=== PATIENT | female | born 1975 | race Caucasian/White ===

== ENCOUNTER 2017-11-10 05:22 | Day surgery (SDC) | payer BC ==
[2017-11-07 17:29] VITALS: BMI 57.9
--- NOTE | 2017-11-10 10:40 | HP ---
Past Medical History - Primary Care Physician PCP:: Ry Boland - Admission Chief Complaint: 42yo female with morbid obesity, menometrorrhagia, and simple endometrial hyperplasia, admitted for hysteroscopy and D&C. History of Present Illness: Pt with vaginal bleeding x 1 mo that is heavy at times. 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: Alzheimer's, CVA, Dementia, Migraine, Multiple Sclerosis, Peripheral Neuropathy, Parkinson's, Seizure, Syncope, TIA, Vertigo, Other Cardiovascular: No: AFIB, Aneurysm, Aortic Insufficiency, Aortic Stenosis, CAD, CHF, Deep Vein Thrombosis, HTN, Hyperlipdemia, TN, Mitral Insufficiency, Mitral Stenosis, Murmur, Pulmonary Hypertension, Other Pulmonary: No: Asthma, Bronchitis, Cancer, COPD, O2 Dependent, Pneumonia, Previously Intubated, Pulmonary Embolus, Pulmonary Fibrosis, Sleep Apnea, Other Gastrointestinal: No: Ascites, Cancer, Constipation, Crohn's Disease, Diverticulitis, Diverticulosis, Esophageal Varices, Gastritis, GERD, GI Bleed, Hemorrhoids, Hiatal Hernia, Inflamatory Bowel Disease, Irritable Bowel Disease, Pancreatitis, Peptic Ulcer Disease, Ulcerative Colitis, Other Hepatobiliary: No: Cirrhosis, Cholelithiasis, Cholecystitis, Choledocholithiasis , Hepatitis A, Hepatitis B, Hepatitis C, Other Renal/: No: Renal Failure, Renal Inusuff, BPH, Cancer, Hematuria, Hemodialysis , Neurogenic Bladder, Renal Calculi, UTI, Other Reproductive: No: Ectopic , Endometriosis, Fibroids, PID, Polycystic Ovary Syndrome, Postmenopausal, Other ...Para: 1 Heme/Onc: Yes: Anemia Infectious Disease: No: AIDS, C-Diff, Herpes Zoster, HIV, MRSA, STD's, Tuberculosis, VREF, Other Psych: No: Addictions, Anxiety, Bipolar, Depression, Panic, Psychosis, Schizophrenia, Other Musculoskeletal: Yes: Osteoarthritis Rheumatology: No: Fibromyalgia, Gout, Lupus, Rheumatoid Arthritis, Sarcoidosis, Vasculitis, Other ENT: No: Allergic Rhinitis, Sinusitis, Other Endocrine: No: Baxter's Disease, Noble's Disease, Diabetes Insipidus, Diabetes Mellitus, Hyperparathyroidism, Hyperthyroidism, Hypothyroidism, Osteopenia, SIADH, Other Dermatology: No: Basal Cell, Cellulitis, Eczema, Melanoma, Psoriasis, Squamous Cell, Other Additional Medical History: Morbid obesity - Past Surgical History Past Surgical History: Yes: Hx Myomectomy: Yes (Hysteroscopic) Hx Transabdominal Cerclage: No Additional Surgical History: Hysteroscopy, D&C - Smoking History Smoking history: Former smoker Have you smoked in the past 12 months: Yes Aproximately how many cigarettes per day: 6 If you are a former smoker, when did you quit?: OCTOBER 2017 - Alcohol/Substance Use Hx Alcohol Use: Yes (SELDOM) History of Substance Use: reports: None - Social History ADL: Independent History of Recent Travel: No Home Medications - Allergies Allergies/Adverse Reactions: Allergies Allergy/AdvReac Type Severity Reaction Status Date / Time No Known Drug Allergies Allergy Verified 11/07/17 17:07 - Home Medications Home Medications: Ambulatory Orders Bismuth Citrate 300 gm MC QID 11/07/17 Metronidazole 375 mg PO QID 11/07/17 Tricycline 375 mg PO QID 11/07/17 Family Disease History - Family Disease History Family History: Denies Review of Systems Findings/Remarks: Well appearing - Review of Systems Constitutional: reports: No Symptoms Eyes: reports: No Symptoms HENT: reports: No Symptoms Neck: reports: No Symptoms Cardiovascular: reports: No Symptoms Respiratory: reports: No Symptoms Gastrointestinal: reports: No Symptoms Genitourinary: reports: Vaginal Bleeding Breasts: reports: No Symptoms Reported Musculoskeletal: reports: No Symptoms Integumentary: reports: No Symptoms Neurological: reports: No Symptoms Endocrine: reports: No Symptoms Hematology/Lymphatic: reports: No Symptoms Psychiatric: reports: No Symptoms Pain Intensity: 0 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: Vital Signs Temperature 98.2 F 11/10/17 09:41 Pulse Rate 91 H 11/10/17 09:41 Respiratory Rate 20 11/10/17 09:41 Blood Pressure 132/79 11/10/17 09:41 O2 Sat by Pulse Oximetry (%) 99 11/10/17 09:41 Constitutional: Yes: No Distress, Calm, Obese Eyes: Yes: WNL, Conjunctiva Clear HENT: Yes: WNL, Atraumatic, Normocephalic Neck: Yes: WNL, Supple, Trachea Midline Cardiovascular: Yes: WNL, Regular Rate and Rhythm Respiratory: Yes: WNL, Regular, CTA Bilaterally Gastrointestinal: Yes: WNL, Normal Bowel Sounds, Soft, Abdomen, Obese ...Rectal Exam: Yes: Deferred Renal/: Yes: WNL Pelvis: Yes: WNL External Genitalia: Yes: Normal Internal Exam Deferred: No Vaginal Exam: Yes: Normal, Bleeding Cervix: Yes: Normal, Bleeding Uterus: Yes: Normal Adnexa: Normal: Right, Left Musculoskeletal: Yes: WNL Extremities: Yes: WNL Edema: No Integumentary: Yes: WNL Neurological: Yes: WNL, Alert, Oriented ...Motor Strength: WNL Psychiatric: Yes: WNL, Alert, Oriented Imaging - Results Ultrasound: Report Reviewed Assessment/Plan 42yo P1 with menometrorrhagia, simple endometrial hyperplasia, morbid obesity admitted for hysteroscopy and D&C. We had discussed the risks, benefits, alternatives of surgery at length including but not limited to infection, bleeding, scarring, perforation, amenorrhea, infertility, hysterectomy, etc. The pt verbalized understanding and requested to proceed with surgery. I emphasized that all surgeries have risks and no guarantees can be provided
[2017-11-10] MEDS ORDERED: MIDAZOLAM HCL 2 MG/2 ML SINGLE DOSE VIAL ONE ×2 (11:12→11:41)
[2017-11-10] MEDS ORDERED: PROPOFOL 20 ML ONE (11:12)
[2017-11-10] MEDS ORDERED: LIDOCAINE HCL/PF 2% SDV 5ML VIAL ONE (11:12)
[2017-11-10] MEDS ORDERED: ePHEDrine SULFATE 50 MG/1 ML AMPULE ONE (11:41)
[2017-11-10] MEDS ORDERED: IBUPROFEN 600 MG TABLET (FP) PO PRN (12:06)
[2017-11-10] MEDS ORDERED: ACETAMINOPHEN 325 MG TABLET (FP) PO PRN (12:06)
--- NOTE | 2017-11-10 12:14 | OP ---
Operative Note - Note: Operative Date: 11/10/17 Pre-Operative Diagnosis: Menometrorrhagia, simple endometrial hyperplasia, morbid obesity Operation: Hysteroscopy, D&C Findings: Active vaginal bleeding, Enlarged uterine cavity w/o lesions Post-Operative Diagnosis: Same as Pre-op Surgeon: Ry Boland Anesthesiologist/MANAGER TECHNICAL TRAINING: Margaret Velez MD Anesthesia: Spinal Specimens Removed: Endometrial curettings Estimated Blood Loss (mls): 5 Blood Volume Replaced (mls): 0 Fluid Volume Replaced (mls): 700 Operative Report Dictated: Yes
[2017-11-10] MEDS ORDERED: ONDANSETRON 4 MG/2 ML VIAL IVPUSH PRN (12:19)
[2017-11-10] MEDS ORDERED: LACTATED RINGERS SOLUTION 1,000 ML IV SCH (12:30)
[2017-11-10 13:11] VITALS: TEMP 98.1
[2017-11-10] MEDS ORDERED: IBUPROFEN 600 MG TABLET (FP) PO ONE ×2 (14:32→14:41)
[2017-11-10] MEDS ORDERED: ACETAMINOPHEN 325 MG TABLET (FP) ONE (14:58)
[2017-11-10] MEDS ORDERED: ACETAMINOPHEN 325 MG TABLET (FP) PO ONE (15:00)
[2017-11-10] MEDS ORDERED: oxyCODONE HCL 5 MG TABLET PO ONE ×2 (15:16→15:30)
[2017-11-10] MEDS ORDERED: oxyCODONE HCL 5 MG TABLET ONE (15:26)
[2017-11-10 15:58] VITALS: BP 138/74; PULSE 82
--- NOTE | 2017-11-10 20:34 | OP ---
DATE OF OPERATION: 11/10/2017 PREOPERATIVE DIAGNOSIS: Menometrorrhagia. Simple endometrial hyperplasia without atypia. Morbid obesity. POSTOPERATIVE DIAGNOSIS: Menometrorrhagia. Simple endometrial hyperplasia without atypia. Morbid obesity. PROCEDURE: Hysteroscopy dilation and curettage. SURGEON: Ry Boland M.D. ANESTHESIOLOGIST: Margaret Velez M.D. ANESTHESIA: Spinal. COMPLICATIONS: None. ESTIMATED BLOOD LOSS: 5 mL. INTRAVENOUS FLUIDS: 700 mL. PATHOLOGY: Endometrial curettings. FINDINGS: Examination under anesthesia revealed a mobile uterus, no pelvic or adnexal masses were noted; however, the examination under anesthesia was limited by patient's morbid obesity. Hysteroscopy revealed an enlarged uterine cavity. Active vaginal bleeding was noted. No endometrial or uterine lesions were noted during hysteroscopy. Estimated fluid volume replaced, 700 mL. PATHOLOGY: Endometrial curettings. DESCRIPTION OF PROCEDURE: Patient was met preoperatively. Risks, benefits, and alternatives of surgery were discussed in details. All questions were answered. The patient was brought to the OR with the IV running. The patient was placed on the surgical table in the sitting position. The spinal anesthesia was achieved without difficulty . The patient was then placed in a dorsal lithotomy position using adjustable Darius stirrups. The patient was examined under anesthesia with the findings as described above. The patient was then prepped and draped in the usual sterile fashion. A timeout procedure was conducted as per standard protocol. A sterile speculum was introduced inside the vagina with good visualization of the cervix. The cervix was grasped with a single-toothed tenaculum. A diagnostic hysteroscopy was then performed with the findings as described above. The cervical os was then gently dilated to accommodate size 23 Desouza dilator. A sharp curettage was performed, and the tissue was sent to pathology for evaluation. Once the curettage was performed, good hemostasis was noted. A second hysteroscopy showed normal endometrial cavity. Good hemostasis was appreciated. All of the instruments were then removed from the patient. Sponge, lap, and instrument counts were correct. Once again good hemostasis was confirmed. The patient was transferred to supine position. The patient was transferred to recovery room, awake and in stable condition. Charly LANGSTON/[id number]
--- NOTE | 2017-11-11 11:39 | PATH ---
Surgical Pathology Report Patient Name: RICKY AVELAR [facility]. Rec. #: [id number] /Age/Gender: 1975 (Age: 42) / F Account: [id number] Location: [facility] SURGICAL Taken: 11/10/2017 Received: 11/10/2017 Reported: 11/11/2017 Physicians: Ry Boland M.D. Specimen(s) Received ENDOMETRIUM CURETTINGS Clinical History Excessive frequent menstruation with irregular cycle Final Diagnosis ENDOMETRIUM, CURETTING: DISORDERED PROLIFERATIVE ENDOMETRIUM WITH AREAS OF STROMAL AND GLANDULAR BREAKDOWN. NO ENDOMETRIAL HYPERPLASIA OR CARCINOMA IDENTIFIED. Electronically Signed Ramin Shaffer M.D. Gross Description Received in formalin labeled "endometrial curettings," is a 4.2 x 4.0 x 0.4 cm aggregate of martinez soft tissue fragments admixed with blood clot. The formalin is filtered and the specimen is entirely submitted in 4 cassettes. /11/10/2017 saudi11/10/2017
== END 2017-11-10 16:50 | disposition home or self-care (01) ==
LOC: JASU-SURG 05:22
PROVIDERS: ATTEND Obstetrics & Gynecology
PROC: 0UJD8ZZ Inspection of Uterus and Cervix, Via Natural or Artificial Opening Endoscopic (ICD-10-PCS; 2017-11-10)
PROC: 0UDB7ZX Extraction of Endometrium, Via Natural or Artificial Opening, Diagnostic (ICD-10-PCS; principal; 2017-11-10 11:30)
DX: N92.1 Excessive and frequent menstruation with irregular cycle (principal); N85.01 Benign endometrial hyperplasia; Z68.43 Body mass index [BMI] 50.0-59.9, adult; Z87.891 Personal history of nicotine dependence
CPT/HCPCS: 88305-TC; 94760